=== PATIENT | male | born 1955 | race Caucasian/White ===

== ENCOUNTER 2024-03-12 14:57 | Emergency (ER) | payer MEDICAID ==
[~2024-03-12] VITALS: Ht 180.3 cm; Wt 84.0 kg
[2024-03-12] MEDS ORDERED: NITROGLYCERIN 50MG PREMIX 250 ML IV ONE (15:45)
[2024-03-12 15:56] LABS: HEMOGLOBIN. 12.3 g/dL (14.0-18.0); LYMPHOCYTES % 8.2 % (20.0-50.0); MEAN CORPUSCULAR HEMOGLOBIN 31.3 pg (28.0-32.0); MEAN CORPUSCULAR HGB CONC 33.2 g/dL (31.0-37.0); MEAN CORPUSCULAR VOLUME 94.1 fL (80.0-94.0); MEAN PLATELET VOLUME 8.2 fl (7.4-10.4); MONOCYTES % 7.2 % (2.0-8.0); NEUTROPHILS % 82.6 % (40.0-76.0); PLATELET 183 x1000/uL (130-400); RED BLOOD CELL COUNT 3.93 mill/uL (4.7-6.1); RED CELL DISTRIBUTION WIDTH 16.7 % (11.6-14.6); WHITE BLOOD COUNT 10.6 x1000/uL (4.5-11.0)
[2024-03-12 16:03] LABS: CHLORIDE 100 mEq/L (98-107); SODIUM 138 mEq/L (136-145)
[2024-03-12] MEDS: NITROGLYCERIN 50 MG PREMIX 250 ML IV PRN (16:03)
[2024-03-12 16:04] LABS: CALCIUM 9.6 mg/dL (8.7-10.4); CARBON DIOXIDE 27 mEq/L (21-32)
[2024-03-12 16:07] LABS: PARTIAL THROMBOPLASTIN TIME 31.6 sec (23.4-31.0); PROTHROMBIN TIME 10.9 sec (9.6-11.0)
[2024-03-12 16:09] LABS: GLUCOSE 116 mg/dL (70-105); UREA NITROGEN BLOOD 35 mg/dL (9-23)
[2024-03-12 16:11] LABS: TROPONIN I HIGH SENSITIVITY 41 ng/L (3.0-53)
[2024-03-12 16:21] LABS: CREATININE 8.2 mg/dL (0.6-1.3)
[2024-03-12 16:52] LABS: BG BASE EXCESS 1.3 mmol/L (-2.0-3.0); BG CARBOXYHEMOGLOBIN 2.1 % (0.5-1.5); BG DEOXYHEMOGLOBIN 3.8 % (0.0-5.0); BG FRACTION INSPIRED OXYGEN 60; BG HCO3 ACT 25.7 mmol/L (21.0-28.0); BG METHEMOGLOBIN 0.3 % (0.5-1.5); BG OXYGEN SATURATION 96.1 % (94.0-98.0); BG OXYHEMOGLOBIN 93.8 % (94.0-98.0); BG PH 7.426 (7.350-7.450); BG SAMPLE SITE RIGHT RADIAL; BG TOTAL HEMOGLOBIN 11.5 g/dL (13.5-17.5); BG VENT MODE MASK - SIMPLE
[2024-03-12] MEDS ORDERED: CLONIDINE 0.1MG TABLET PO PRN (18:15)
[2024-03-12] MEDS ORDERED: ONDANSETRON HCL 4MG/2ML INJ IV PRN (18:15)
[2024-03-12] MEDS ORDERED: ACETAMINOPHEN 325MG TABLET PO PRN (18:15)
[2024-03-12 18:28] VITALS: TEMP 36.89184
[2024-03-12] MEDS: FUROSEMIDE 40MG/4ML VIAL IVP NR (18:36)
[2024-03-12] MEDS: VANCOMYCIN 1.5 GM in DEXT 5% WATER 250 ML IV SCH (20:10)
[2024-03-12] MEDS: PIPERACILLIN/TAZO 3.375G/50ML 50 ML IV SCH (20:10)
[2024-03-12] MEDS ORDERED: ZOLPIDEM TARTRATE 5MG TABLET PO PRN (21:00)
[2024-03-12] MEDS: ENOXAPARIN 30MG/0.3ML SYR SUBCUT SCH (22:08)
[2024-03-12 22:09] VITALS: PULSE 85; RESP 15; O2SAT 99
[2024-03-12] MEDS: IPRATROPIUM/ALBUTEROL 0.5-3(2.5)MG/3ML NEB HHN SCH (22:09)
[2024-03-12 23:11] LABS: CREATINE KINASE MB FRACTION 1.2 ng/mL (0.5-3.6)
[2024-03-13 00:17] LABS: *AMPHETAMINES SCREEN URINE NEGATIVE (NEGATIVE)
[2024-03-13 00:18] LABS: *BARBITURATES SCREEN URINE NEGATIVE (NEGATIVE); *BENZODIAZEPINES SCREEN URINE NEGATIVE (NEGATIVE); *COCAINE SCREEN URINE NEGATIVE (NEGATIVE); CANNABINOID URINE SCREEN PRESUMPTIVE POSITIVE (NEGATIVE); ECSTASY MDMA SCREEN URINE NEGATIVE (NEGATIVE); METHADONE URINE SCREEN NEGATIVE (NEGATIVE); OPIATES URINE SCREEN NEGATIVE (NEGATIVE); PHENCYCLIDINE URINE SCREEN NEGATIVE (NEGATIVE)
[2024-03-13 02:56] VITALS: PULSE 86; RESP 15; O2SAT 99
[2024-03-13 05:50] LABS: EOSINOPHILS % 0.6 % (0.0-5.0); HEMATOCRIT. 30.8 % (42.0-52.0); HEMOGLOBIN. 10.4 g/dL (14.0-18.0); LYMPHOCYTES % 14.7 % (20.0-50.0); MEAN CORPUSCULAR HEMOGLOBIN 31.5 pg (28.0-32.0); MEAN CORPUSCULAR HGB CONC 33.8 g/dL (31.0-37.0); MEAN CORPUSCULAR VOLUME 93.1 fL (80.0-94.0); MEAN PLATELET VOLUME 8.2 fl (7.4-10.4); MONOCYTES % 10.3 % (2.0-8.0); NEUTROPHILS % 73.4 % (40.0-76.0); PLATELET 142 x1000/uL (130-400); RED BLOOD CELL COUNT 3.31 mill/uL (4.7-6.1); WHITE BLOOD COUNT 6.9 x1000/uL (4.5-11.0)
[2024-03-13 05:51] LABS: POTASSIUM 3.9 mEq/L (3.5-5.1)
[2024-03-13 05:53] LABS: CALCIUM 8.7 mg/dL (8.7-10.4)
[2024-03-13 05:59] VITALS: BP 169/90; PULSE 88; RESP 16; O2SAT 100
[2024-03-13 06:01] LABS: CREATINE KINASE MB FRACTION 1.2 ng/mL (0.5-3.6)
[2024-03-13 06:44] LABS: CREATININE 9.4 mg/dL (0.6-1.3)
[2024-03-13] MEDS ORDERED: VANCOMYCIN 500MG PREMIX 100 ML IV SCH (20:00)
== END 2024-03-13 09:04 | disposition left against medical advice (07) ==
LOC: ER 14:57 → EDBEDREQTM 18:31 → EDBEDREQ 18:31 → CANBEDREQ 03-13 08:55 → ER 03-13 09:04
DX: J81.0 Acute pulmonary edema (principal); I16.1 Hypertensive emergency; I12.0 Hypertensive chronic kidney disease with stage 5 chronic kidney disease or end stage renal disease; J81.1 Chronic pulmonary edema; N18.6 End stage renal disease; Z99.2 Dependence on renal dialysis
CPT/HCPCS: 80305; 80048 ×2; 82550 ×2; 82553 ×2; 83880; 85025 ×2; 85610; 85730; 84484 ×2; 36415 ×2; 84145; 71045; 94640; 82805; 82375; 93005; 96367; 96368; 96365; 96372; 96375; 99291; 36600; J3370; J1650; J1940; J3490 ×2; J2543; Z7610 ×6; J7060